=== PATIENT | female | born 1950 | race Caucasian/White ===

== ENCOUNTER 2022-04-17 18:41 | Emergency (ER) | payer MEDICARE, SELFPAY ==
[2022-04-17 19:03] VITALS: BP 118/40; PULSE 86; RESP 16; TEMP 39.2; O2SAT 93; BMI 21.9
[2022-04-17 19:42] LABS: Coronavirus 19, PCR Not Detected (NotDetected); Influenza A, PCR Not Detected (NotDetected); Influenza B, PCR Not Detected (NotDetected)
--- NOTE | 2022-04-17 19:58 | XR_ITS ---
PROCEDURE INFORMATION: Exam: XR Chest Exam date and time: 04/17/2022 8:15 PM Age: 71 years old Clinical indication: Pain; Cough; Other: N/a; Additional info: Fever TECHNIQUE: Imaging protocol: Radiologic exam of the chest. Views: 1 view. COMPARISON: No relevant prior studies available. FINDINGS: Lungs: Chronic appearing right lung volume loss. No acute airspace consolidation. Pleural spaces: Small right-sided pleural effusion. Heart/Mediastinum: Cardiomegaly. Mediastinal shift to the right. Bones/joints: Unremarkable. IMPRESSION: 1. Small right-sided pleural effusion. 2. Chronic appearing right-sided volume loss. No prior exams available for comparison.
[2022-04-17 20:23] LABS: Alanine Aminotransferase 14 U/L (12-78); Albumin Level 3.9 g/dl (3.5-5.0); Albumin/Globulin Ratio 1.1 (1.1-1.8); Alkaline Phosphatase 116 U/L (38-126); Anion Gap 17.8 mEq/L (5-15); Aspartate Amino Transferase 31 U/L (14-36); Basophils % 0.5 % (0.1-2.0); Blood Urea Nitrogen 13 mg/dl (7-17); Calcium 9.1 mg/dl (8.4-10.2); Carbon Dioxide 27 mmol/L (22.0-30.0); Chloride 96 mmol/L (98-107); Creatinine Clearance Estimated 31 mL/min (50-200); Eosinophils % 0.5 % (0.1-12.0); Estimated Glomerular Filt Rate 40 ml/min (>60); GFR (African American) 49 ML/MIN (>60); Globulin 3.5 g/dL (1.3-3.2); Glucose 96 mg/dl (74-100); Hematocrit 34.7 % (37.0-47.0); Hemoglobin 10.9 g/dL (12.2-16.2); Lymphocytes # 0.4 K/mm3 (0.7-4.5); Lymphocytes % 7.3 % (10-50); Mean Corpuscular HGB Conc 31.5 g/dL (31.8-35.4); Mean Corpuscular Hemoglobin 26.5 pg (27.0-31.2); Monocytes # 0.3 K/mm3 (0.1-1.0); Monocytes % 6.4 % (1.7-9.3); Neutrophils # 4.3 K/mm3 (1.8-7.8); Neutrophils % 85.2 % (37.0-80.0); Platelet Count 414 K/mm3 (142-424); Potassium 3.8 mmoL/L (3.5-5.1); Red Blood Count 4.13 M/mm3 (4.20-5.40); Red Cell Distribution Width 14.9 % (11.5-17.5); Sodium 137 mmol/L (136-145); Total Protein,Serum 7.4 g/dl (6.3-8.2)
[2022-04-17 20:24] LABS: Lactic Acid 0.6 mmol/L (0.7-2.1); MANUAL DIFFERENTIAL MANUAL DIFFERENTIAL (MANUAL DIFF)
[2022-04-17 20:28] LABS: C-Reactive Protein 28.4 mg/L (0-4)
[2022-04-17 20:33] LABS: Bilirubin,Total < 0.1 mg/dl (0.2-1.3)
--- NOTE | 2022-04-17 20:33 | PC.NURSE ---
Dr. Mayer at
[2022-04-17 20:42] LABS: Procalcitonin 0.123 ng/mL (0.0-2.0)
--- NOTE | 2022-04-17 20:44 | HMH.EDFEV ---
Discharge Plan Disposition Patient Disposition: Home, Self-Care Prescriptions Prescriptions: New levofloxacin 500 mg tablet 500 mg PO DAILY Qty: 7 0RF Referrals Follow up/Referrals: Chi Gonzalez DO [Primary Care Provider] - See instructions Clinical Impressions Clinical Impression: Acute UTI (urinary tract infection) Instructions Patient Instructions: DI for Urinary Tract Infection (UTI), DI for Fever (Symptom) -- Adult Discharge ED Provider: Vincenzo Mayer Fever HPI General Chief Complaint: Fever Stated Complaint: fever,dehydrated Time Seen by Provider: 04/17/22 20:15 Mode of Arrival: Ambulatory Source of Information: Patient, Relative and Medical Record Limitations: No Limitations Description of Symptoms (Recalled from ER Triage Doc. by RN): pt states she has had vomiting, nausea, weakness, not eating or drinking for a week, states she was sick last week started feeling better then started feeling bad again this weekend, also reports fever History of Present Illness HPI Narrative: fever and achey with vomiting and dec po intake - no cough or diarrhea MD complaint: fever and malaise Onset (ago): day(s) Associated symptoms: denies other symptoms Related Data Previous Rx's Medication Instructions Recorded levofloxacin 500 mg tablet 500 mg PO DAILY #7 tabs 04/17/22 Allergies Allergy/AdvReac Type Severity Reaction Status Date / Time AMOXICILLIN Allergy Severe ANAPHYLACTI Uncoded 05/09/17 15:40 C CODEINE Allergy Severe ANAPHYLACTI Uncoded 05/09/17 15:40 C PENICILLIN Allergy Severe ANAPHYLACTIC Uncoded 05/09/17 15:40 REACTION PFSH PFSH Social History Smoking Status: Never smoker alcohol intake: never current occupational status: retired Travel in the last 8 weeks: None ROS Obtained: Yes All systems reviewed & no additional complaints except as documented Physical Exam General General appearance: alert Head Head exam: normocephalic Eye Eye exam: Present PERRL and EOMI; Absent scleral icterus ENT ENT exam: Present mucous membranes dry Neck Neck exam: Present trachea midline Respiratory Respiratory exam: Present normal lung sounds bilaterally; Absent respiratory distress Cardiovascular Cardiovascular exam: Present regular rate and systolic murmur Abdominal Exam Abdominal exam: Present soft; Absent tenderness Extremities Exam Extremities exam: Present full ROM Neurological Exam Neurological exam: Present alert, oriented X3 and CN II-XII intact; Absent motor sensory deficit Psychiatric Psychiatric exam: Present normal affect Skin Skin exam: Absent rash Medical Decision Making Medical Records Medical records reviewed: Yes I reviewed the patient's medical records. Jacobo Inquiry Pt receiving controlled substance: No Vital Signs: 04/17/22 19:03 Temperature 102.6 F H Temperature Source Oral Pulse Rate [Right Radial] 86 Respiratory Rate 16 Blood Pressure [Right Arm] 118/40 L Blood Pressure Mean [Right Arm] 66 Blood Pressure Source [Right Arm] Automatic Cuff Blood Pressure Position [Right Arm] Sitting 02 Sat by Pulse Oximetry 93 L Oxygen Delivery Method Room Air Lab Data Lab results reviewed: Yes I reviewed the patient's lab results. Lab Results 04/17/22 19:25: SARS-CoV-2 (PCR) Not detected, Influenza A Untype (PCR) Not detected, Influenza Type B (PCR) Not detected 04/17/22 19:25: WBC 5.0, RBC 4.13 L, Hgb 10.9 L, Hct 34.7 L, MCV 84.0, MCH 26.5 L, MCHC 31.5 L, RDW 14.9, Plt Count 414, MPV 8.0, Neut % (Auto) 85.2 H, Lymph % (Auto) 7.3 L, [place] % (Auto) 6.4, Eos % (Auto) 0.5, Baso % (Auto) 0.5, Neut # (Auto) 4.3, Lymph # (Auto) 0.4 L, [place] # (Auto) 0.3, Eos # (Auto) 0.0, Baso # (Auto) 0.0, Total Counted 100, Neutrophils % (Manual) 90 H, Band Neutrophils % 5.0, Lymphocytes % (Manual) 4 L, Monocytes % (Manual) 1 L, Platelet Estimate Normal, RBC Morphology Normal 04/17/22 19:25: Sodium 137, Potassium 3.8, Chloride 96 L, Carbon Dioxide 27, Anion Gap 17
[2022-04-17 21:38] LABS: Lymphocytes % 4 % (10-50); Monocytes % 1 % (2-9); Neutrophils % 90 % (42-76); Total Cells Counted 100
[2022-04-17 21:39] LABS: Platelet Estimate Normal; RBC Morphology Normal
[2022-04-17 21:56] LABS: Erythrocyte Sedimentation Rate 71 mm/hr (0-30)
[2022-04-17 22:06] LABS: Microscopic, Urine URINE MICROSCOPIC (MICROSCOPIC)
[2022-04-17 22:07] LABS: Appearance,Urine CLEAR (Clear); Bilirubin,Urine Negative (Negative); Blood, Urine 1+ (Negative); Color,Urine YELLOW (Yellow); Glucose,Urine (UA) Negative (Negative); Ketones,Urine Negative (Negative); Leukocyte Esterase,Urine 3+ (Negative); Nitrate,Urine Negative (Negative); PH,Urine 5.5 (5.0-8.5); Protein,Urine Negative (Negative); Urobilinogen,Urine 0.2 EU/dl (0.2)
[2022-04-17 22:31] LABS: Bacteria,Urine 1+ /lpf
[2022-04-17 22:58] VITALS: BP 120/58; PULSE 82; RESP 18; TEMP 36.6; O2SAT 99
[2022-04-17 23:04] VITALS: BP 115/76; PULSE 80; RESP 18; TEMP 36.6; O2SAT 97
== END 2022-04-17 23:05 | disposition home or self-care (01) ==
PROVIDERS: Emergency Medicine; Emergency Provider Emergency Medicine; PCP Family Medicine
DX: N39.0 Urinary tract infection, site not specified (principal); R53.1 Weakness; R50.9 Fever, unspecified; R11.2 Nausea with vomiting, unspecified; Z20.822 Contact with and (suspected) exposure to COVID-19; Z79.899 Other long term (current) drug therapy; Z88.0 Allergy status to penicillin; Z88.1 Allergy status to other antibiotic agents; Z88.5 Allergy status to narcotic agent; Z88.8 Allergy status to other drugs, medicaments and biological substances
CPT/HCPCS: 71045; 80053; 81001; 83605; 84145; 85007; 85025; 85651; 86140; 87040; 87086; 87088; 87186; 96360; 99284; C9803; J0696; U0003; U0005

== ENCOUNTER 2022-06-28 14:00 | Outpatient (RCR) | payer MEDICARE, SELFPAY | END 2022-06-28 14:05 | disposition home or self-care (01) | LOC: PT 14:00 | PROVIDERS: PCP Family Medicine; Visit Provider Student in an Organized Health Care Education/Training Program | DX: I89.0 Lymphedema, not elsewhere classified (principal) | CPT/HCPCS: 97140; 97162; 97760 ==

== ENCOUNTER 2023-01-06 17:46 | Emergency (ER) | payer MEDICARE, SELFPAY ==
[2023-01-06] VITALS (12 sets, daily range): BP systolic 125–163; BP diastolic 66–96; PULSE 74–102; RESP 16–17; TEMP 36.3; O2SAT 90–97; BMI 19.7
--- NOTE | 2023-01-06 19:03 | PC.NURSE ---
rounded on pt, primary nurse at [facility]
--- NOTE | 2023-01-06 19:08 | PC.NURSE ---
ROUNDED ON PT, NO NEEDS AT THIS TIME. FAMILY AT BEDSIDE
--- NOTE | 2023-01-06 20:19 | CT_ITS ---
PROCEDURE INFORMATION: Exam: CT Abdomen And Pelvis With Contrast Exam date and time: 01/06/2023 9:26 PM Age: 72 years old Clinical indication: Abdominal pain; Additional info: Rlq pain, previous cancerour lymph nodes TECHNIQUE: Imaging protocol: Computed tomography of the abdomen and pelvis with contrast. Radiation optimization: All CT scans at this facility use at least one of these dose optimization techniques: automated exposure control; mA and/or kV adjustment per patient size (includes targeted exams where dose is matched to clinical indication); or iterative reconstruction. Contrast material: ISOVUE; Contrast volume: 75 ml; Contrast route: IV; REPORTING DATA: Count of CT and Cardiac NM exams in prior 12 months: This patient has received 0 known CTs and 0 known cardiac nuclear medicine studies in the 12 months prior to the current study. COMPARISON: CR XR CHEST PORTABLE 04/17/2022 8:15 PM FINDINGS: Lungs: Lung bases are clear. Liver: Normal. No mass. Gallbladder and bile ducts: Normal. No calcified stones. No ductal dilation. Pancreas: Normal. No ductal dilation. Spleen: Normal. No splenomegaly. Adrenal glands: Normal. No mass. Kidneys and ureters: A 13 mm simple benign-appearing cyst in the inferolateral right kidney. No follow-up of this lesion advised. Additional subcentimeter low-density lesion in the posteromedial mid right kidney on image 25 and subcentimeter low-density lesions in the medial left kidney on image 36 and lateral left kidney on image 35 and anterior left kidney on image 25 too small to characterize but statistically likely cysts. No follow-up of these lesions advised. Kidneys and ureters otherwise unremarkable with no obstructing stones or uropathy. Stomach and bowel: Multiple diverticula of the sigmoid. GI tract structures otherwise unremarkable with no evident wall thickening allowing for incomplete distention. Appendix: Appendix is normal. No evidence of appendicitis. Intraperitoneal space: Unremarkable. No free air. No significant fluid collection. Vasculature: Caval filter is noted. The superior portion of this filter extends above the level of the renal veins. Atherosclerotic changes of the aorta and iliacs noted. No evidence of aneurysm. Lymph nodes: Unremarkable. No enlarged lymph nodes. Urinary bladder: Unremarkable as visualized. Reproductive: Unremarkable as visualized. Bones/joints: Unremarkable. No acute fracture. Soft tissues: Unremarkable. IMPRESSION: 1. No acute abnormalities of the abdomen and pelvis. Nonemergent findings as above. 2. Caval filter noted with the superior portion above the level of the renal veins suggesting possible abnormal position and superior migration. COMMENTS: 1. Consistent with the [employer]'s Incidental Findings Committee white paper (J Am Darryl Radiol 2018): Any incidental renal lesion less than 1 cm or classified as too small to characterize, or any incidental cystic renal lesion characterized as simple-appearing, is likely benign. No follow-up imaging is recommended for these lesions per consensus recommendations based on imaging criteria. 2. For patients with an IVC filter, recommend assessment for a management plan for the patient's IVC filter. If there is no established management plan, recommend referral to an interventional clinician on a nonemergent basis for evaluation.
[2023-01-06 20:30] LABS: Microscopic, Urine URINE MICROSCOPIC (MICROSCOPIC)
--- NOTE | 2023-01-06 20:32 | PC.NURSE ---
Pt ambulatory to bathroom, did have pain upon movement. No needs voiced at this time.
--- NOTE | 2023-01-06 20:40 | HMH.EDGENADL ---
Discharge Plan Disposition Patient Disposition: Home, Self-Care Condition: Fair Prescriptions Prescriptions: New nitrofurantoin monohyd/m-cryst [Macrobid] 100 mg capsule 100 mg PO BID 5 Days Qty: 10 0RF Rx Instructions: must administer with a meal/food No Action levofloxacin 500 mg tablet 500 mg PO DAILY Qty: 7 0RF Referrals Follow up/Referrals: Chi Gonzalez DO [Primary Care Provider] - See instructions Activity Restrictions/Add. Instructions Additional Instructions/Restrictions: At this time was felt you are safe to be discharged from the emergency department. If new or worsening symptoms please not hesitate to return for continued evaluation. Please take antibiotics as prescribed for urinary tract infection and if symptoms persist in a few days please follow-up with your family doctor as soon as you are able for continued evaluation of your pain and elevated platelets. Please follow-up with your vascular surgeon to discuss the positioning of your IVC filter as soon as you are able. Clinical Impressions Clinical Impression: Deep inguinal pain, right, Acute UTI, Malposition of inferior vena cava filter, Idiopathic thrombocythemia Discharge ED Provider: Maurice House General Adult HPI General Chief complaint: PAIN Stated complaint: Abd pain, lt side Time Seen by Provider: 01/06/23 20:01 Mode of Arrival: Wheelchair Limitations: No Limitations Description of Symptoms (Recalled from ER Triage Doc. by RN): PT R/O RIGHT HIP AND GROIN PAIN THAT STARTED YESTERDAY. PAIN IS BURNING INTERMITTENT, WORSE WITH MOVEMENT. 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 Onset was acute, occurring yesterday afternoon, worse with ambulation. 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 She has never had DVT in proximal right lower extremity. She does not notice any new asymmetric swelling similar with previous clots. She does have some remaining clots in her distal left lower extremity is currently on anticoagulation. Denies vomiting, dysuria. She has antalgic gait causing her to present here for continued evaluation. Denies trauma. No other acute complaints at this time Related Data Previous Rx's Medication Instructions Recorded levofloxacin 500 mg tablet 500 mg PO DAILY #7 tabs 04/17/22 nitrofurantoin 100 mg PO BID 5 days #10 caps 01/06/23 monohydrate/macrocrystals 100 mg capsule (Macrobid) Allergies Allergy/AdvReac Type Severity Reaction Status Date / Time AMOXICILLIN Allergy Severe ANAPHYLACTI Uncoded 05/09/17 15:40 C CODEINE Allergy Severe ANAPHYLACTI Uncoded 05/09/17 15:40 C PENICILLIN Allergy Severe ANAPHYLACTIC Uncoded 05/09/17 15:40 REACTION PFSH PFS Disclaimer: The information contained in this section may have been updated after the patient was seen, as this information can be updated by other users. Social History (Updated 04/17/22 @ 22:43 by Vincenzo Mayer MD) Smoking Status: Former smoker alcohol intake: never current occupational status: retired Travel in the last 8 weeks: None ROS Obtained: Yes Systems reviewed as appropriate & no additional complaints except as documented Physical Exam General General appearance: alert and in no apparent distress Head Head exam: atraumatic and normocephalic Eye Eye exam: Present PERRL and EOMI ENT ENT exam: Present mucous membranes moist Neck Neck exam: Present normal inspection Chest Chest inspection: Present normal inspection and symmetric chest wall rise Respiratory Respiratory exam: Present normal lung sounds bilaterally; Absent respiratory distress Cardiovascular Cardiovascular exam: Present regular rate and normal rhythm Abdominal Exam Abdominal exa
[2023-01-06 20:59] LABS: Basophils # 0.1 K/mm3 (0-0.2); Eosinophils # 0.1 K/mm3 (0.0-0.4); Eosinophils % 1.1 % (0.1-12.0); Hematocrit 32.9 % (37.0-47.0); Hemoglobin 10.4 g/dL (12.2-16.2); Lymphocytes # 2.4 K/mm3 (0.7-4.5); Lymphocytes % 35.8 % (10-50); Mean Corpuscular HGB Conc 31.6 g/dL (31.8-35.4); Mean Corpuscular Hemoglobin 30.2 pg (27.0-31.2); Mean Corpuscular Volume 95.6 fl (81-99); Mean Platelet Volume 7.6 fl (7.4-10.4); Monocytes # 0.4 K/mm3 (0.1-1.0); Monocytes % 5.9 % (1.7-9.3); Neutrophils # 3.7 K/mm3 (1.8-7.8); Neutrophils % 56.1 % (37.0-80.0); Platelet Count 951 K/mm3 (142-424); Red Blood Count 3.44 M/mm3 (4.20-5.40); White Blood Count 6.6 K/mm3 (4.8-10.8)
[2023-01-06 21:01] LABS: Appearance,Urine CLEAR (Clear); Bilirubin,Urine Negative (Negative); Blood, Urine TRACE-I (Negative); Color,Urine YELLOW (Yellow); Glucose,Urine (UA) Negative (Negative); Ketones,Urine Negative (Negative); Leukocyte Esterase,Urine 2+ (Negative); Nitrate,Urine Negative (Negative); Protein,Urine Negative (Negative); Urobilinogen,Urine 0.2 EU/dl (0.2)
[2023-01-06 21:03] LABS: Chloride 106 mmol/L (98-107); Potassium 3.8 mmoL/L (3.5-5.1); Sodium 138 mmol/L (136-145)
[2023-01-06 21:05] LABS: Blood Urea Nitrogen 9 mg/dl (7-17); Creatinine Clearance Estimated 36 mL/min (50-200); Estimated Glomerular Filt Rate 70 ml/min (>60); GFR (African American) 85 ML/MIN (>60)
[2023-01-06 21:06] LABS: Alanine Aminotransferase 15 U/L (12-78); Albumin Level 2.6 g/dl (3.5-5.0); Albumin/Globulin Ratio 0.6 (1.1-1.8); Alkaline Phosphatase 179 U/L (38-126); Anion Gap 9.8 mEq/L (5-15); Aspartate Amino Transferase 25 U/L (14-36); Bilirubin,Total 0.2 mg/dl (0.2-1.3); Calcium 8.8 mg/dl (8.4-10.2); Carbon Dioxide 26 mmol/L (22.0-30.0); Globulin 4.3 g/dL (1.3-3.2); Glucose 85 mg/dl (74-100); Total Protein,Serum 6.9 g/dl (6.3-8.2)
--- NOTE | 2023-01-06 21:19 | PC.NURSE ---
PT gone to [facility] via stretcher
--- NOTE | 2023-01-06 21:20 | PC.NURSE ---
PT TO CT
[2023-01-06 21:28] LABS: RBC,Urine Occasional #/hpf (0-3); Squamous Epithelial Cell,Urine Occasional #/hpf (0-5)
--- NOTE | 2023-01-06 21:29 | PC.NURSE ---
PT returned from Rad
--- NOTE | 2023-01-06 22:53 | PC.NURSE ---
Dr. House at [facility]
== END 2023-01-06 23:26 | disposition home or self-care (01) ==
PROVIDERS: Emergency Provider Emergency Medicine; PCP Family Medicine
DX: T82.525A Displacement of umbrella device, initial encounter (principal); D47.3 Essential (hemorrhagic) thrombocythemia; N39.0 Urinary tract infection, site not specified; Z85.820 Personal history of malignant melanoma of skin; Z85.79 Personal history of other malignant neoplasms of lymphoid, hematopoietic and related tissues; Z86.718 Personal history of other venous thrombosis and embolism; Z87.891 Personal history of nicotine dependence
CPT/HCPCS: 74177; 80053; 81001; 85025; 87086; 99285; Q9967